=== PATIENT | male | born 1960 | race Caucasian/White ===

== ENCOUNTER 2018-09-19 11:33 | Inpatient (IN) | payer MEDICARE ==
[2018-09-19] VITALS (8 sets, daily range): BP systolic 91–158; BP diastolic 51–84
[~2018-09-19] VITALS: Ht 172.7 cm; Wt 84.0 kg
--- NOTE | ~2018-09-19 | EKG ---
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
--- NOTE | ~2018-09-19 | PR ---
[place], [place] PROGRESS NOTE NAME[id number] UNIT #: [id number] ROOM: 521 DOCTOR: KATE TOLEDO MD BIRTHDATE: [birth year] DOS: I am seeing this patient on behalf of Dr. Arnold. SUBJECTIVE: The patient feels fine today. He has no dizziness, lightheadedness, and the blood pressure has been pretty decent all day. He actually passed out a couple of times in the last one month and these episodes occurred all of a sudden. Both times, he was sitting. 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 PHYSICAL EXAMINATION: GENERAL: Reveals the patient is alert, oriented, comfortable. VITAL SIGNS: Pulse is regular. Blood pressure 164/93. NECK: Normal JVP. LUNGS: A lot of crackles and rhonchi in both lungs with reduced breath sounds. EXTREMITIES: There is no edema in the right leg. IMPRESSION: This patient has a history of recurrent syncopal episodes, the reason is not clear. Orthostatic hypotension is likely. The patient does not have a pacemaker, but no distress. He has passed out while in the hospital in the past and I believe no rhythm disorder has been identified. No new recommendations. KATE TOLEDO MD CM:PNTRANS [id number] KATE TOLEDO MD 09/20/18 2002 interface
--- NOTE | ~2018-09-19 | EKG ---
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
--- NOTE | ~2018-09-19 | EKG ---
[place], [place] ELECTROCARDIOGRAM REPORT NAME: ISHAAN RASMUSSEN UNIT #: [id number] ROOM: 521 DOCTOR: HERMAN DRAFT REPORT BIRTHDATE: [birth year] 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
--- NOTE | ~2018-09-19 | CON ---
[place], [place] REPORT OF CONSULTATION NAME: ISHAAN RASMUSSEN 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 The patient has been admitted multiple times, also history of significant orthostatic hypotension. The patient also has problems with vasculopathy. 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 The patient admitted with altered mental status and the patient according to the family was passing out multiple times and was holding his substernal chest area, complaining of chest discomfort. The patient had no acute new EKG changes. There is some lateral ST depression in the lateral leads, which is unchanged from before. He had a recent stress test done in [place] and was unremarkable. He had multiple heart catheterizations and the last cardiac catheterization showed patency of the previously placed stent and he underwent PTCA of the obtuse marginal branch of the circ and the repeat catheterization had showed patency of those. Has chronic diffuse disease all over the left system. The patient as mentioned no acute EKG abnormalities and right now he is chest pain free. PAST MEDICAL HISTORY: Significant for severe coronary artery disease, diabetes, hypertension, hyperlipidemia, and history of orthostatic hypotension. MEDICATIONS: He is on aspirin, clopidogrel, gabapentin, Amaryl, isosorbide, metoprolol, lisinopril, midodrine, Ranexa, and simvastatin. ALLERGIES: None. REVIEW OF SYSTEMS: CONSTITUTIONAL: No fever, no chills. HEENT: No visual disturbances, hearing problems. CARDIOVASCULAR: As reported in HPI. Does have chest discomfort. RESPIRATORY: Does have shortness of breath. GASTROINTESTINAL: Does have nausea. Does have dizziness. OBJECTIVE: VITAL SIGNS: Blood pressure is 129/67. The patient is in sinus rhythm. HEENT: Unremarkable. LUNGS: Diminished air entry. HEART: Sounds are regular. ABDOMEN: Soft, nontender. NEUROLOGICAL: Stable. LABORATORY DATA: Electrolytes are normal. Creatinine is 1.6. Troponin is negative 0.025 and 0.023. C-reactive protein is ____. BNP is 446. Hemoglobin 13, hematocrit 36.6. EKG sinus rhythm with ST depression in the lateral leads, unchanged from before. IMPRESSION: The patient with known coronary artery disease with atypical chest discomfort. Recent stress test and a recent catheterization has been done at [place]. History of multiple syncope, history of orthostatic hypotension, coronary artery disease, hypertension, and hyperlipidemia. [place], [place] REPORT OF CONSULTATION NAME: ISHAAN RASMUSSEN UNIT #: [id number] ROOM: 521 DOCTOR: ERICK BELL MD BIRTHDATE: [birth year] RECOMMENDATIONS: To continue the present medication, review the echocardiogram, do orthostatic blood pressures. He probably might benefit from a neurological evaluation. The patient already had previous tilt-table test and it was abnormal and I will closely follow up. Thank you for this interesting consultation. ERICK BELL MD CM:CONSTR:REPORT OF CONSULTATION 1705 09/20/18 0406 interface
[2018-09-19 11:59] LABS: BASO % 0.5 % (0.0-1.0); EOS # 0.2 10*3/uL (0.0-0.4); EOS % 2.4 % (1.0-4.0); HEMATOCRIT 36.6 % (42.0-52.0); LYMPH # 1.8 10*3/uL (1.3-4.4); LYMPH % 21.4 % (27.0-41.0); MEAN CELL VOLUME 98.7 fl (80.0-94.0); MEAN CORPUSCULAR HGB CONC 35.5 g/dl (33.0-37.0); MEAN PLATELET VOLUME 8.3 fl (9.6-12.3); MONO # 0.5 10*3/uL (0.1-1.0); MONO % 6.2 % (3.0-9.0); NEUT # 5.9 10*3/uL (2.3-7.9); NEUT % 68.7 % (47.0-73.0); PLATELET COUNT AUTOMATED 164 10*3/uL (130-400); RED BLOOD COUNT 3.71 10*6/uL (4.50-5.90); RED CELL DISTRI WIDTH 12.1 % (0-14.5); WHITE BLOOD COUNT 8.5 10*3/uL (4.8-10.8)
[2018-09-19 12:08] LABS: ACT PARTIAL THROMBO TIME 23.4 SECONDS (20.8-31.5); INTERNATIONAL NORM RATIO 0.9 (2.0-3.5)
[2018-09-19] MEDS ORDERED: LISINOPRIL5 MG PO (12:13)
[2018-09-19] MEDS ORDERED: ZOCOR10 MG PO (12:13)
[2018-09-19] MEDS ORDERED: ASPIRIN CHEWABL81 MG PO (12:14)
[2018-09-19] MEDS ORDERED: PAXIL20 M1 PO (12:15)
[2018-09-19] MEDS ORDERED: DIABETIC MED PO (12:15)
[2018-09-19 12:16] LABS: ALBUMIN 3.4 gm/dl (3.1-4.5); CREATININE 1.64 mg/dL (0.70-1.30); POTASSIUM 4.6 mmol/L (3.5-5.1); TOTAL PROTEIN 7.1 gm/dL (6.4-8.2)
[2018-09-19 12:17] LABS: LIPASE 90 U/L (73-393); TROPONIN I 0.023 ng/ml (<0.045)
[2018-09-19 12:19] LABS: ACETAMINOPHEN (TYLENOL) < 5.0 ug/ml (10-30); ETHYL ALCOHOL < 3.0 mg/dl (<3)
[2018-09-19] MEDS ORDERED: LOPRESSOR25 MG PO (14:12)
[2018-09-19] MEDS ORDERED: PLAVIX75 M1 PO (14:12)
[2018-09-19] MEDS ORDERED: AMARYL4 MG PO (14:13)
[2018-09-19] MEDS ORDERED: PROTONIX IV40 MG PO (14:13)
[2018-09-19] MEDS ORDERED: MIDODRINE HCL10 MG PO (14:13)
[2018-09-19] MEDS ORDERED: RANEXA1000 M1 PO (14:14)
[2018-09-19] MEDS ORDERED: NEURONTIN300 MG PO (14:14)
[2018-09-19] MEDS ORDERED: IMDUR SA30 MG PO (14:14)
[2018-09-19] MEDS ORDERED: REMERON15 M2 PO (14:15)
[2018-09-19] MEDS ORDERED: INSULIN SQ (14:16)
[2018-09-19] MEDS ORDERED: LEVEMIR FL100 UNIT/1 SC (17:42)
[2018-09-19 20:10] LABS: BILIRUBIN NEGATIVE (NEGATIVE); BLOOD NEGATIVE (NEGATIVE); CLARITY CLEAR (CLEAR); COLOR YELLOW (YELLOW); GLUCOSE 3+ (NEGATIVE); KETONE NEGATIVE (NEGATIVE); LEUKO ESTERASE NEGATIVE (NEGATIVE); NITRITE NEGATIVE (NEGATIVE); PH 5.5 (5.0-9.0); SPECIFIC GRAVITY >= 1.030 (1.005-1.030); UROBILINOGEN 0.2 E.U./dl (0.2-1.0)
[2018-09-19 20:18] LABS: URINE AMPHETAMINES < 1000 (1000ng/ml); URINE BARBITURATES < 200 (200ng/ml); URINE BENZODIAZEPINES < 200 (200ng/ml); URINE CANNABINOIDS (THC) < 50 (50ng/ml); URINE COCAINE < 300 (300ng/ml); URINE METHADONE < 300 (300ng/ml); URINE OPIATES < 300 (300ng/ml)
[2018-09-19 20:19] LABS: URINE PHENCYCLIDINE < 25 (25ng/ml)
[2018-09-19 20:26] LABS: BACTERIA TRACE; MUCOUS TRACE; RBC 0-2 rbc/hpf (0-2); WBC 0-2 wbc/hpf (0-5)
[2018-09-20] VITALS: BP 135/69
[2018-09-20 07:33] LABS: BASO % 0.4 % (0.0-1.0); EOS # 0.2 10*3/uL (0.0-0.4); EOS % 2.3 % (1.0-4.0); HEMATOCRIT 34.4 % (42.0-52.0); LYMPH # 2.3 10*3/uL (1.3-4.4); LYMPH % 24.7 % (27.0-41.0); MEAN CELL VOLUME 98.3 fl (80.0-94.0); MEAN CORPUSCULAR HGB 34.3 pg (27.0-31.0); MEAN CORPUSCULAR HGB CONC 34.9 g/dl (33.0-37.0); MONO # 0.5 10*3/uL (0.1-1.0); MONO % 5.5 % (3.0-9.0); NEUT # 6.2 10*3/uL (2.3-7.9); NEUT % 66.6 % (47.0-73.0); PLATELET COUNT AUTOMATED 160 10*3/uL (130-400); RED CELL DISTRI WIDTH 12.3 % (0-14.5); WHITE BLOOD COUNT 9.3 10*3/uL (4.8-10.8)
[2018-09-20 07:35] LABS: ALBUMIN 3.1 gm/dl (3.1-4.5); ALKALINE PHOSPHATASE 60 U/L (45-117); BUN 24 mg/dl (7-24); CHLORIDE 107 mmol/L (98-107); CHOLESTEROL 120 mg/dL (<200); CREATININE 1.29 mg/dL (0.70-1.30); HDL CHOLESTEROL 38 mg/dl (40-60); LDL CHOLESTEROL 44 mg/dL (9-159); PHOSPHOROUS 2.6 mg/dL (2.5-4.9); POTASSIUM 4.3 mmol/L (3.5-5.1); SGOT/AST 17 IU/L (3-35); SGPT/ALT 24 U/L (12-78); SODIUM 140 mmol/L (136-145); TOTAL PROTEIN 6.3 gm/dL (6.4-8.2); TRIGLYCERIDES 192 mg/dl (<150); VLDL CHOLESTEROL 38 mg/dL (6-40)
[2018-09-20 07:36] LABS: FREE T4 0.93 ng/dl (0.76-1.46)
[2018-09-20 08:00] VITALS: BP 150/78
[2018-09-20 08:30] LABS: VITAMIN D, 25-HYDROXY 15.1 ng/mL (30-100)
[2018-09-20 12:00] VITALS: BP 148/77
[2018-09-20 16:00] VITALS: BP 164/93
[2018-09-20 20:00] VITALS: BP 132/74
[2018-09-21] VITALS: BP 138/55
[2018-09-21 06:33] LABS: BASO % 0.4 % (0.0-1.0); EOS # 0.3 10*3/uL (0.0-0.4); EOS % 3.2 % (1.0-4.0); HEMATOCRIT 33.3 % (42.0-52.0); HEMOGLOBIN 11.9 g/dl (14.0-18.0); MEAN CELL VOLUME 98.5 fl (80.0-94.0); MEAN CORPUSCULAR HGB 35.2 pg (27.0-31.0); MEAN CORPUSCULAR HGB CONC 35.7 g/dl (33.0-37.0); MEAN PLATELET VOLUME 8.7 fl (9.6-12.3); MONO # 0.5 10*3/uL (0.1-1.0); MONO % 6.6 % (3.0-9.0); NEUT % 63.2 % (47.0-73.0); PLATELET COUNT AUTOMATED 139 10*3/uL (130-400); RED BLOOD COUNT 3.38 10*6/uL (4.50-5.90); RED CELL DISTRI WIDTH 12.3 % (0-14.5); WHITE BLOOD COUNT 7.9 10*3/uL (4.8-10.8)
[2018-09-21 07:11] LABS: BUN 23 mg/dl (7-24); CHLORIDE 108 mmol/L (98-107); CREATININE 1.31 mg/dL (0.70-1.30); SODIUM 141 mmol/L (136-145)
[2018-09-21 08:00] VITALS: BP 152/70
[2018-09-21] MEDS ORDERED: FLUDROCORTISON0.1 MG PO (11:29)
== END 2018-09-21 11:51 | disposition home or self-care (01) | DRG 205 ==
LOC: ED 11:33 → 5E 15:28 → EDHOLD 15:28 → 5E 16:18
PROVIDERS: Emergency Medicine; Family Medicine; Registered Nurse
DX: M94.0 Chondrocostal junction syndrome [Tietze] (principal); G93.41 Metabolic encephalopathy; I95.1 Orthostatic hypotension; E86.0 Dehydration; E11.65 Type 2 diabetes mellitus with hyperglycemia; I25.118 Atherosclerotic heart disease of native coronary artery with other forms of angina pectoris; R07.89 Other chest pain; E78.00 Pure hypercholesterolemia, unspecified; K21.9 Gastro-esophageal reflux disease without esophagitis; J06.9 Acute upper respiratory infection, unspecified; Z89.512 Acquired absence of left leg below knee; I25.2 Old myocardial infarction; Z95.5 Presence of coronary angioplasty implant and graft; Z79.899 Other long term (current) drug therapy; Z79.82 Long term (current) use of aspirin; Z79.02 Long term (current) use of antithrombotics/antiplatelets